=== PATIENT | female | born 1990 | race Caucasian/White ===

== ENCOUNTER 2016-12-25 17:25 | Emergency (ER) | payer OTHER, MEDICARE ==
[2016-12-25 19:27] LABS: RED BLOOD COUNT 4.47 M/UL (4.00-5.10); WHITE BLOOD COUNT 11.5 K/UL (4.5-11.0)
[2016-12-25 19:45] LABS: BUN/CREATININE RATIO 18 (0-10)
== END 2016-12-25 21:00 | disposition home or self-care (01) ==
LOC: ER1 17:25
PROVIDERS: Nurse Practitioner Family
DX: O23.41 Unspecified infection of urinary tract in pregnancy, first trimester (principal); O21.9 Vomiting of pregnancy, unspecified; Z3A.11 11 weeks gestation of pregnancy
CPT/HCPCS: 36415; 80053; 81001; 84702; 85025; 87086; 96361; 96374; 99284; J2550

== ENCOUNTER 2017-04-13 09:16 | Outpatient (CLI) | payer MEDICARE | END 2017-04-13 14:02 | disposition home or self-care (01) | LOC: GENOP 09:16 | DX: O99.89 Other specified diseases and conditions complicating pregnancy, childbirth and the puerperium (principal); M54.9 Dorsalgia, unspecified | CPT/HCPCS: 81001; 96360; J7120 ==